=== PATIENT | female | born 1995 | race Caucasian/White ===

== ENCOUNTER 2023-03-14 11:33 | Emergency (ER) | payer MEDICAID ==
[~2023-03-14] VITALS: Ht 160 cm; Wt 72.6 kg
[2023-03-14] MEDS ORDERED: HYDROCODONE/APAP 10/325MG TABLET ONE (12:27)
[2023-03-14] MEDS ORDERED: KETOROLAC TROMETHAMINE INJ 30 MG/ML VIAL IM ONE (12:30)
[2023-03-14] MEDS ORDERED: HYDROCODONE/APAP 10/325MG TABLET PO ONE (12:30)
[2023-03-14] MEDS ORDERED: KETOROLAC TROMETHAMINE INJ 30 MG/ML VIAL ONE (12:31)
[2023-03-14] MEDS ORDERED: CYCLOBENZAPRINE 10 MG TABLET PO ONE (14:30)
[2023-03-14] MEDS ORDERED: CYCLOBENZAPRINE 10 MG TABLET ONE (14:34)
[2023-03-14 15:30] LABS: PREGNANCY TEST URINE QUAL NEGATIVE (NEGATIVE)
[2023-03-14] MEDS ORDERED: CYCL10TA9 PO (16:45)
[2023-03-14] MEDS ORDERED: LIDO30AD10 TP (16:45)
[2023-03-14] MEDS ORDERED: IBUP-1955 PO (16:45)
[2023-03-14 16:57] VITALS: BP 128/82; TEMP 98; O2SAT 98
== END 2023-03-14 16:58 | disposition home or self-care (01) ==
LOC: ER 12:15
DX: S22.32XA Fracture of one rib, left side, initial encounter for closed fracture (principal); J45.909 Unspecified asthma, uncomplicated; Z79.899 Other long term (current) drug therapy; Y08.89XA Assault by other specified means, initial encounter; Y93.89 Activity, other specified; Y92.89 Other specified places as the place of occurrence of the external cause; Y99.8 Other external cause status
CPT/HCPCS: 99285; 71250; 96372; 84703; J1885; A6403

== ENCOUNTER 2024-10-28 23:15 | Emergency (ER) | payer MEDICAID, OTHER ==
[~2024-10-28] VITALS: Ht 160 cm; Wt 79.4 kg
[~2024-10-28 23:15] MED LIST: CYCL10TA9 PO; IBUP-1955 PO; LIDO30AD10 TP
[2024-10-28 23:58] LABS: APPEARANCE,URINE CLEAR (CLEAR); BILIRUBIN,URINE NEGATIVE (NEGATIVE); BLOOD, URINE NEGATIVE Ery/uL (NEGATIVE); COLOR,URINE OTHER (YELLOW); KETONES,URINE NEGATIVE (NEGATIVE); LEUKOCYTE ESTERASE ,URINE NEGATIVE (NEGATIVE); NITRITE, URINE NEGATIVE (NEGATIVE); PROTEIN,URINE NEGATIVE (NEGATIVE); UGLUCOSE NEGATIVE (NEGATIVE); UROBILINOGEN,URINE 0.2 EU/dL (0.2)
[2024-10-29 00:09] LABS: PREGNANCY TEST URINE QUAL NEGATIVE (NEGATIVE)
[2024-10-29 00:11] LABS: BASOPHILS # (AUTO) 0.1 K/uL (0.0-0.2); BASOPHILS % (AUTO) 0.8 % (0.0-2.0); EOSINOPHILS # (AUTO) 0.3 K/uL (0.0-0.7); EOSINOPHILS % (AUTO) 2.2 % (0.0-6.0); HEMATOCRIT 49 % (33-45); HEMOGLOBIN 16.6 g/dL (11.5-14.8); LYMPHOCYTES # (AUTO) 2.5 K/uL (0.8-4.8); LYMPHOCYTES % (AUTO) 22.2 % (20.0-44.0); MEAN CORPUSCULAR HEMOGLOBIN 36 PG (26.0-33.0); MEAN CORPUSCULAR HGB CONC 34 g/dl (31.0-36.0); MEAN CORPUSCULAR VOLUME 105 fL (82-100); MONOCYTES # (AUTO) 1.1 K/uL (0.1-1.30); MONOCYTES % (AUTO) 9.7 % (2.0-12.0); NEUTROPHILS # (AUTO) 7.5 K/uL (1.8-8.9); NEUTROPHILS % (AUTO) 65.1 % (43.0-81.0); PLATELET COUNT (AUTO) 286 K/uL (150-450); RED BLOOD CELL COUNT(AUTO) 4.66 MIL/uL (4.0-5.2); RED CELL DISTRIBUTION WIDTH 14.8 % (11.5-15.0); WHITE BLOOD COUNT (AUTO) 11.5 K/uL (4.3-11.0)
[2024-10-29 00:23] VITALS: BP 141/80; TEMP 98.4; O2SAT 98
[2024-10-29 00:26] LABS: CALCIUM, SERUM 8.5 mg/dL (8.5-10.1); CREATININE 0.6 mg/dL (0.6-1.3); POTASSIUM 3.5 mmol/L (3.5-5.1)
[2024-10-29 00:32] LABS: ALBUMIN 3.9 g/dL (3.4-5.0); BILIRUBIN,DIRECT 0.1 mg/dL (0.0-0.2); BILIRUBIN,TOTAL 0.3 mg/dL (0.2-1.0); TOTAL PROTEIN, SERUM 7.3 g/dL (6.4-8.2)
== END 2024-10-29 00:47 | disposition left against medical advice (07) ==
LOC: ER 23:40
DX: R10.9 Unspecified abdominal pain (principal)
CPT/HCPCS: 36415; 80048-TC; 80076-TC; 83690-TC; 84703-TC; 85025-TC